=== PATIENT | female | born 1950 | race Two or more races ===

== ENCOUNTER 2018-01-19 10:26 | Outpatient (CLI) | payer OTHER ==
[~2018-01-19 10:26] MED LIST: AMOX1TAB12 PO; CRESTOR; LEVOXIL; LODINE; MEDROLPACK PO; NEURONTIN; TUSSIONEX PENN115 ML PO
== END 2018-01-19 13:42 | disposition home or self-care (01) ==
LOC: NUCLEAR 10:26
DX: I70.212 Atherosclerosis of native arteries of extremities with intermittent claudication, left leg (principal)

== ENCOUNTER 2018-01-19 11:26 | Outpatient (CLI) | payer OTHER | END 2018-01-19 16:59 | disposition home or self-care (01) | LOC: RAD 11:26 | DX: M25.552 Pain in left hip (principal) ==

== ENCOUNTER → 2018-04-26 | Outpatient (CLI) | payer OTHER | END | disposition home or self-care (01) | LOC: NUCLEAR 11:25 | DX: M81.0 Age-related osteoporosis without current pathological fracture (principal); Z78.0 Asymptomatic menopausal state; Z78.9 Other specified health status; E55.9 Vitamin D deficiency, unspecified; N95.1 Menopausal and female climacteric states ==

== ENCOUNTER 2018-06-21 09:54 | Outpatient (CLI) | payer OTHER | END 2018-06-21 17:00 | disposition home or self-care (01) | LOC: RAD 09:54 | DX: Z01.818 Encounter for other preprocedural examination (principal) ==

== ENCOUNTER → 2019-01-21 | Outpatient (CLI) | payer OTHER | END | disposition home or self-care (01) | LOC: RAD 12:51 | DX: J18.8 Other pneumonia, unspecified organism (principal) ==

== ENCOUNTER 2023-06-02 14:27 | Outpatient (CLI) | payer OTHER | END 2023-06-02 15:03 | disposition home or self-care (01) | LOC: SONOGRAMA 14:27 | DX: C92.00 Acute myeloblastic leukemia, not having achieved remission (principal) ==